=== PATIENT | female | born 1975 | race Two or more races ===

== ENCOUNTER → 2021-05-14 | Outpatient (CLI) | payer BC ==
[~2021-05-14] MED LIST: ASCO500C PO; HYDR-2761 PO; LEVO25TA4 PO; MEDR10TA3 PO; NITR100C62 PO
[2021-05-14 16:30] LABS: FREE T4 0.99 ng/dL (0.76-1.46); THYROID STIM HORMONE (TSH) 3.436 uIU/mL (0.358-3.74)
== END ==
LOC: SURGPAT 15:03
PROVIDERS: ATTEND Obstetrics & Gynecology
DX: Z01.818 Encounter for other preprocedural examination (principal)
CPT/HCPCS: 36415; 84439; 84443

== ENCOUNTER 2021-05-21 06:53 | Day surgery (SDC) | payer BC ==
[2021-05-14 15:40] VITALS: BP 121/72
[~2021-05-21] VITALS: Ht 147.3 cm; Wt 59.0 kg
[~2021-05-21 06:53] MED LIST changes: -HYDR-2761 PO; +HYDROmorphone 2 MG/ML VIAL IVP PRN; +IV RINGERS,LACTATED 1000ML 1,000 ML IV SCH; +MORPHINE SULFATE 2 MG/ML INJ. IVP PRN; +PROCHLORPERAZINE 10 MG/2 ML VIAL. IVP PRN; +fentaNYL PF VIAL 100 MCG/2 ML VIAL IVP PRN
[2021-05-21 07:25] VITALS: BP 131/66
[2021-05-21] MEDS ORDERED: DEXAMETHASONE SOD PHOS 4 MG/ML VIAL ONE (07:51)
[2021-05-21] MEDS ORDERED: KETOROLAC 30 MG/ML VIAL. ONE (07:51)
[2021-05-21] MEDS ORDERED: ONDANSETRON PF 4 MG/2 ML VIAL. ONE (07:51)
[2021-05-21] MEDS ORDERED: PROPOFOL 10 MG/ML (20ML) VIAL. IV ONE (07:51)
[2021-05-21] MEDS ORDERED: LIDOCAINE 2% PF 5 ML VIAL. ONE (07:51)
[2021-05-21] MEDS ORDERED: MIDAZOLAM HCL/PF 2 MG/2 ML VIAL. ONE (07:52)
[2021-05-21] MEDS ORDERED: fentaNYL PF VIAL 100 MCG/2 ML VIAL ONE (07:53)
[2021-05-21 07:58] LABS: BASO % 1 % (0-3); EOS # 0.2 x10^3/uL (0.0-0.7); EOS % 3 % (0-3); HEMATOCRIT 33.2 % (36.0-47.0); HEMOGLOBIN 10.7 g/dL (12.0-15.5); LYMPH # 1.7 x10^3/uL (1.0-4.8); LYMPH % 23 % (24-48); MEAN CORPUSCULAR HEMOGLOBIN 28 pg (25-35); MEAN CORPUSCULAR HGB CONC 32 g/dL (31-37); MEAN CORPUSCULAR VOLUME 87 fL (79-100); MONO # 0.5 x10^3/uL (0.0-1.1); MONO % 7 % (0-9); NEUT # 4.7 x10^3/uL (1.8-7.7); NEUT % 66 % (31-73); PLATELET COUNT 360 x10^3/uL (140-400); RED BLOOD COUNT 3.84 x10^6/uL (3.50-5.40); RED CELL DISTRIBUTION WIDTH 20.7 % (11.5-14.5); WHITE BLOOD COUNT 7.1 x10^3/uL (4.0-11.0)
[2021-05-21] MEDS ORDERED: VASOPRESSIN 20 UNIT/ML VIAL. ONE (08:07)
[2021-05-21 08:37] LABS: ANISOCYTOSIS SLIGHT; PLT ESTIMATE ADEQUATE (ADEQUATE)
[2021-05-21] MEDS ORDERED: SEVOFLURANE 31 TO 60 MINUTES. IH ONE (08:49)
[2021-05-21] MEDS ORDERED: ePHEDrine PF IN SALINE 50 MG/10 ML SYRINGE. IV ONE (08:49)
[2021-05-21] MEDS ORDERED: SEVOFLURANE 61 TO 120 MINUTES. IH ONE (09:44)
--- NOTE | 2021-05-21 10:24 | PDOC ---
BRIEF OPERATIVE NOTE Date: May 21, 2021 Pre-Op Diagnosis dub, menorrhagia, anemia, fibroid Post-Op Diagnosis same Procedure Performed hs D&C with myosure and submucosal myomectomy Surgeon Dr. Lea Stephens Lead Business Systems Analyst JOE Randall Anesthesiologist Dr. Hernandez Anesthesia Type: General Blood Loss 20cc IV Fluid see anesthesia Urine Output straight cath prior Specimens Obtained endometrial currettings, submucosal fibriod Findings large endometrial mass cw submucosal fibroid, normal fundus and saw both tubal openings Complications none Operative Note [id number] LEA STEPHENS MD May 21, 2021 10:24
[2021-05-21] MEDS ORDERED: diphenhydrAMINE 50 MG/ML VIAL IV PRN (10:30)
[2021-05-21] MEDS ORDERED: CALCIUM CARBONATE 500 MG TAB.CHEW PO PRN (10:30)
[2021-05-21] MEDS ORDERED: NALOXONE 0.4 MG/ML VIAL. IV PRN (10:30)
[2021-05-21] MEDS ORDERED: diphenhydrAMINE HCL 25 MG CAPSULE PO PRN (10:30)
[2021-05-21] MEDS ORDERED: SIMETHICONE 80 MG TAB.CHEW PO PRN (10:30)
[2021-05-21] MEDS ORDERED: HYDROcodone/APAP 5/325MG 1 TAB TABLET PO PRN (10:30)
[2021-05-21] MEDS ORDERED: 0.9 % SODIUM CHLORIDE 10 ML DISP.SYRIN. IV PRN (10:30)
[2021-05-21] MEDS ORDERED: MAG HYDROX/ALUMINUM HYD/SIMETH 30 ML ORAL.SUSP PO PRN (10:30)
[2021-05-21] MEDS ORDERED: HYDR-2761 PO (10:42)
[2021-05-21 11:48] VITALS: BP 104/51
--- NOTE | 2021-05-21 14:14 | OP ---
DATE OF SURGERY: 05/21/2021 PREOPERATIVE DIAGNOSES: Dysfunctional uterine bleeding, menorrhagia, anemia and a known endometrial mass, increasing submucosal fibroid. POSTOPERATIVE DIAGNOSES: Dysfunctional uterine bleeding, menorrhagia, anemia and a known endometrial mass, increasing submucosal fibroid. PROCEDURE: Hysteroscopy, D and C with MyoSure fluid collection system and submucosal myomectomy. SURGEON: Lea Benitez MD. CLAMP TRUCK DRIVER: JOE Randall. ANESTHESIOLOGIST: Terrence Hernandez MD. ANESTHESIA: General. BLOOD LOSS: 20 mL. URINE OUTPUT: Straight cath prior to procedure. SPECIMEN: Endometrial curettings with a submucosal fibroid. FINDINGS: She had a large endometrial mass. The uterus was sounded to about 10-12 cm. The fundus and both tubal openings appeared grossly normal. This was a very large mass coming off the anterior and left side. COMPLICATIONS: None. DESCRIPTION OF PROCEDURE: This patient was taken to the operating room where general anesthesia was placed. The patient was placed in dorsal lithotomy position in Valentino stirrups. The patient's vagina was prepped and draped in the normal sterile fashion and a straight cath urine was done prior to my arrival. The scope had been primed and ready. Upon my arrival, a timeout was performed. Once everyone agreed on the patient, the site and the procedure, the procedure was initiated. A weighted speculum was placed in the patient's vagina. A single-tooth tenaculum was used to grasp the anterior lip of the cervix. She was already dilated up well past the #6, #7 of the Hegar, so, the scope, like I said had already been primed and was ready was placed in with the above findings. We did need the MyoSure XL as this was a large mass, so they replaced the sheath over the scope and obtained the XL. I also put a tenaculum on the bottom of the cervix as she was so dilated that the fluid was just pouring out and it was hard to maintain a pressure. They did turn up the intrauterine pressure to 100-110 as it was a large uterus and she was leaking out to maintain the pressure. The MyoSure XL was obtained, 2/2 bags of tissue of this endometrial mass were obtained of the submucosal fibroid. They had to change out the bag even of the specimen bag twice as they got so much tissue. After about 14 minutes and 10 seconds of cut time and over 2 bags of specimen tissue and everything, there was still quite a bit of mass left that we had gotten a lot of progress done and a lot of tissue obtained. It was decided to go ahead at the end of the procedure at this point and we will see if this improves. If not, she may end up with either a second procedure or a hysterectomy, but we did get a lot of tissue out and a lot of progress was made on reducing and debulking the mass. Once this was done, the speculum was removed. Ins and outs were counted, 7 bags at 3000 each were used of about 21 in and we had over 20 accounted for out and still more on the floor, so there was less than 1000 deficit total. Again 14 minutes and 10 seconds was cut time with the MyoSure XL. There were no complications. The tenaculums were removed. There was no active bleeding and the procedure was ended. The patient was awakened from anesthesia and brought to recovery room in stable condition. BRANDON/ABILIO/BIBIANA DR: Theresa TID: [id number]
--- NOTE | 2021-05-22 17:07 | PATHOLOGY ---
[facility] Accession Number: [id number] . 01 Material submitted: . endometrium - ENDOMETRIAL CURETTINGS AND FIBROID . 01 Clinical history: . MENORRHAGIA HYSTEROSCOPY D AND C W/ MYOSURE . 02 Diagnosis: Segments of endometrial and smooth muscle tissue, endometrial curettings and fibroid: - Numerous segments of smooth muscle tissue showing focal hyalinization compatible with a submucosal leiomyoma. - Multiple segments of endometrial tissue showing stromal decidualization with inactive and atrophic endometrial glands, consistent with progesterone effect. (JPM:cinda; 05/22/2021) R 05/22/2021 1604 Local . 02 Comment: The endometrial curettings reveal multiple segments of a submucosal leiomyoma showing focal hyalinization. There is no atypia or evidence of malignancy. There are also segments of endometrium showing stromal decidualization with atrophic and inactive endometrial glands, consistent with progesterone effect. (JPM:cinda; 05/22/2021) . 02 Electronically signed: . Lane Rizo MD, Pathologist NPI- [id number] . 01 Gross description: . The specimen is received in formalin, labeled "Tial, Dawt, endometrial curettings and fibroid". It consists of multiple fonseca-brown, irregular soft tissue fragments measuring 11.0 x 8.0 x 1.5 cm in aggregate. Automatic Bandsaw Tender sections (approximately 80% of the tissue received) are submitted in A1-A10. (MRF; 05/21/2021) MFE/MFE 05/22/2021 1401 Local . 02 Pathologist provided ICD-10: N85.8, N92.0 . 02 CPT . 281775 Specimen Comment: A courtesy copy of this report has been sent to [phone] Specimen Comment: Report sent to Performed at: [address] [facility] [address], [place], [place] [id number] MD Grady Deleon MD Phone: [phone] Performed at: 02 [facility] [place] [address] [place], [place] [id number] MD Lane Rizo MD Phone: [phone]
== END 2021-05-21 12:29 | disposition home or self-care (01) ==
LOC: SURG 06:53
PROVIDERS: ATTEND Obstetrics & Gynecology
DX: N93.8 Other specified abnormal uterine and vaginal bleeding (principal); D25.0 Submucous leiomyoma of uterus; N92.0 Excessive and frequent menstruation with regular cycle; D64.9 Anemia, unspecified; N85.8 Other specified noninflammatory disorders of uterus; E03.9 Hypothyroidism, unspecified; F41.9 Anxiety disorder, unspecified; Z79.899 Other long term (current) drug therapy; Z98.890 Other specified postprocedural states
CPT/HCPCS: 36415; 58558; 81025; 85025; A4930; J1100; J1885; J2250; J2405; J2704; J3010; 88305; J3490